=== PATIENT | male | born 1935 | race Caucasian/White ===

== ENCOUNTER 2016-11-10 17:54 | Inpatient (IN) | payer MEDICARE ==
[2016-11-10] MEDS ORDERED: FUROSEMIDE 40 MG/4 ML VIAL ONE (19:03)
[2016-11-10 19:05] LABS: ABSOLUTE NEUTROPHIL COUNT 5.5 K/mm3 (1.8-7.7); BASO # 0.1 K/mm3 (0.0-0.2); BASO % 0.8 % (0.2-1.0); EOS # 0.1 (0.0-0.5); EOS % 1.4 % (0.9-2.9); HEMATOCRIT 46.1 % (32.0-52.0); HEMOGLOBIN 14.9 gm/l (14.0-18.0); IMM NEUT% 0.3 % (0-1); LYMPH # 1.4 (1.0-4.8); LYMPH % 17.6 % (15-45); MEAN CELL VOLUME 95.4 fl (80.0-94.0); MEAN CORPUSCULAR HEMOGLOBIN 30.8 pg (27.0-31.0); MEAN CORPUSCULAR HGB CONC 32.3 g/dl (33.0-37.0); MEAN PLATELET VOLUME 10.7 fl (7.4-10.4); MONO # 0.9 (0.0-0.8); MONO % 11.7 % (4-12); NEUT % 68.2 % (43-75); PLATELET COUNT 181 K/mm3 (130-400); RED CELL DISTRIBUTION WIDTH 15.4 % (11.5-14.5)
[2016-11-10 19:16] LABS: TROPONIN I 0.02 ng/ml (0.0-0.06)
[2016-11-10 19:18] LABS: ALB/GLOB RATIO 1.1 (>1.0); ALBUMIN 3.8 gm/dL (3.5-5.7); MAGNESIUM 2.2 mg/dL (1.9-2.7)
[2016-11-10 21:26] VITALS: BMI 28.4
[2016-11-10 22:35] LABS: URINE BILIRUBIN NEGATIVE (NEGATIVE); URINE BLOOD NEGATIVE (NEGATIVE); URINE GLUCOSE (UA) NEGATIVE (NEGATIVE); URINE LEUKOCYTE ESTERASE NEGATIVE (NEGATIVE); URINE NITRITE NEGATIVE (NEGATIVE); URINE PROTEIN 1+ (NEGATIVE); URINE UROBILINOGEN NORMAL (0-1 mg/dl)
[2016-11-10 22:36] LABS: URINE APPEARANCE CLEAR; URINE COLOR YELLOW
[2016-11-10 22:42] LABS: URINE BACTERIA 0; URINE RBC 0-2 /hpf; URINE WBC 0-2 /hpf
[2016-11-10] MEDS ORDERED: BISACODYL 10 MG SUP PR PRN (23:03)
[2016-11-10] MEDS ORDERED: MAGNESIUM HYDROXIDE 30 ML UDCUP PO PRN (23:03)
[2016-11-10] MEDS ORDERED: BLISTEX LIPSTICK 1 EACH TP PRN (23:03)
[2016-11-10] MEDS ORDERED: BISACODYL 5 MG TABLET.EC PO PRN (23:03)
[2016-11-10] MEDS ORDERED: SODIUM CHLORIDE 0.9% 100 ML IV PRN (23:03)
[2016-11-11 00:09] LABS: TROPONIN I 0.02 ng/ml (0.0-0.06)
[2016-11-11 00:12] LABS: CKMB ISOENZYME 6.8 ng/ml (0.6-6.3)
[2016-11-11] MEDS ORDERED: PUMP TUBING ONE (00:42)
[2016-11-11] MEDS: SODIUM CHLORIDE 0.9% 1,000 ML IV SCH ×2 (00:46→14:01)
[2016-11-11] MEDS: MENTHOL/CETYLPYRD 1 EACH LOZENGE PO PRN (00:47)
[2016-11-11] MEDS: ALBUTEROL NEB 2.5 MG/3 ML VIAL.NEB NEB PRN ×2 (01:05→20:02)
[2016-11-11] MEDS: ACETAMINOPHEN 325 MG TABLET PO PRN (02:28)
--- NOTE | 2016-11-11 06:42 | HP ---
Tano Malcolm ADMIT DATE: 11/10/2016 CHIEF COMPLAINT: Swelling and shortness of breath. HISTORY: Tano is a 81-year-old male with a history of chronic atrial fibrillation, but no other cardiac disease known. He was brought in by his with about a 2 day history of gradually worsening shortness of breath and lower extremity swelling. His swelling has gotten fairly significant and even goes up onto his abdomen. His weighed him at home and he weighed about 213 pounds today where as his baseline is usually around 200 even. Both the patient and his are markedly poor historians, difficult to get a idea of exactly what has been going on the last few days. The indicates that his blood pressure has been running high with a bottom number around 100 and as a result she has been doubling up on an unknown medication. The medication it sounds like is not one of his normal medications, but instead is one that they found left over from a surgery a few years ago. The states that she looked up the side effects and it "looks pretty good," so they have been taking a double dose due to his high blood pressure. This has been going on for about a week it sounds like. Again, this medication is unknown. Neither the patient or the can remember any of his normal medications let alone this extra medication they have been taking a double dose of lately. He has had no chest pain. No fevers. No chills. He does have chronic tickle in his throat and feels like there is phlegm in his throat, but this has been longstanding. He has had no abdominal pain. No diarrhea. No fevers or chills. He does feel short of breath and wheezy, but he feels much better now after receiving Lasix in the emergency room. REVIEW OF SYSTEMS: As noted above, but otherwise negative. PAST MEDICAL HISTORY: 1. Chronic atrial fibrillation. He is status post Maze procedure in 2007. Last echocardiogram that we have access to is from 2014 showing an ejection fraction of 65%, severe biatrial enlargement, and diastolic dysfunction noted. 2. Hypertension. 3. History of a deep venous thrombosis in 2009. 4. A remote history of osteomyelitis to the right ankle. 5. History of a transient ischemic attack in 2012. 6. Abdominal aortic aneurysm followed with serial ultrasounds. 7. Chronic kidney disease stage III, baseline creatinine around 1.5. 8. Benign prostatic hypertrophy with a history of transurethral resection of prostate back in 2004. PAST SURGICAL HISTORY: 1. History of multiple cervical spine fusions for cervical degenerative disc disease. 2. Status post left total shoulder arthroplasty at [facility] in 2012. 3. Transurethral resection of prostate in 2004 as noted above. 4. Left inguinal hernia repair in the distant past. 5. Appendectomy in the distant past. 6. EGD June 2016 that was within normal limits by report. ALLERGIES: TO DEMEROL AND DABIGATRAN. CURRENT MEDICATIONS: Neither the patient nor his can remember his medications, but they do indicate that Dr. Coello is the only person who prescribes medications to them though and according to Dr. Coello's note his medications are as follows: 1. Amlodipine 10 mg by mouth daily. 2. Diltiazem CD 120 by mouth daily. 3. Lasix 40 mg by mouth every morning. 4. Digoxin 0.125 mg by mouth daily. 5. Dandelion root 520 mg by mouth daily. 6. Co-Q 10 100 mg by mouth daily. 7. Xarelto 15 mg by mouth daily. 8. Potassium chloride 20 mEq by mouth daily. 9. Linzess 145 mcg by mouth daily. 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 He has been almost 50 years. He had a distant history of smoking though quit decades ago. FAMILY HISTORY: Father of Alzheimer's disease. Mother of congestive heart failure. He had a brother with colon cancer and another brother with Alzheimer's disease. OBJECTIVE: VITAL SIGNS: Pulse is 59, blood pressure 136/86, respirations 20, O2 sat 95% on 2 liters. GENERAL: This is a thin elderly male. He is alert and calm sitting in bed. He is unable to answer even basic questions. His answers all questions for him. HEENT: Normocephalic, atraumatic. Tympanic membranes are clear. Oropharynx is moist with no lesions. NECK: Supple. No jugular venous distention noted. LUNGS: Completely clear with no wheezes, rales, or rhonchi. HEART: Regular rate and rhythm with distant sounds. ABDOMEN: Soft. Abdominal wall edema is noted. EXTREMITIES: He has 3 to 4+ edema in the bilateral lower extremities. There is no redness. No evidence of cellulitis. LABORATORY: CBC with a white count of 8.0, hemoglobin 14.9, hematocrit 46.1, platelets of 181. Chemistry panel sodium of 133, potassium 4.7, chloride 102, carbon dioxide 21, BUN 27, creatinine 2.1, glucose of 117, calcium 10.0, magnesium 2.2, total bilirubin 0.9, AST 69, ALT 79, alk phos of 117. CK-MB was 7.0, troponin 0.02, BNP of 390, lactate of 1.5. DIAGNOSTICS: Chest x-ray shows borderline cardiomegaly. Appears to have a hiatal hernia as well. ASSESSMENT: 1. Shortness of breath with edema with elevated BNP, this presumed new onset congestive heart failure exacerbation, however, his picture is a little unclear at this point. He has had obvious medication mismanagement lately and this may be playing into it. He has a history of a pulmonary emboli, though he is anticoagulated on Xarelto apparently. Again, it is unclear whether he is taking his medications correctly. Also concerned about possibility of renal causing his above symptoms. He has received Lasix in the emergency room and apparently feels significantly better. We will go ahead and continue with Lasix at this point. We will attempt to obtain accurate medication list tomorrow. I have asked patient's to bring in all medications in a bag tomorrow so I can review them including the extra medicine they have been using. We will check serial cardiac enzymes and repeat an echocardiogram in the morning. I want to check a D-dimer and if this is elevated will consider further workup for the possibility of pulmonary embolism. At this point we will continue just on the Xarelto. Depending on the results of the above workup we may consider a Lexiscan. 2. Acute kidney injury in the context of chronic kidney disease stage III, unclear etiology suspect medication mismanagement as an etiology. 3. Cognitive impairment. The patient seems clearly to be impaired this evening. I do not know what his baseline is. We will have therapy see him in the morning and perform a SLUMS evaluation. 4. Hypertension. By patient's 's report this has been under less good control lately. Again, we will review medications when we have them available and consider adjustments as necessary. I am particularly concerned about him being on both amlodipine and diltiazem. In review his chart this is actually a fairly longstanding regimen that he has been on. We will again review in the morning. 5. Atrial fibrillation, this is chronic and at baseline. Continue with Xarelto. 6. Deep venous thrombosis with Xarelto. Further care is dictated by clinic course. JOB: [id number] CC: Dr. He Coello
[2016-11-11 07:03] LABS: HEMATOCRIT 39.5 % (32.0-52.0); MEAN CELL VOLUME 93.2 fl (80.0-94.0); MEAN CORPUSCULAR HEMOGLOBIN 30.7 pg (27.0-31.0); MEAN CORPUSCULAR HGB CONC 32.9 g/dl (33.0-37.0); RED CELL DISTRIBUTION WIDTH 15.2 % (11.5-14.5)
[2016-11-11 07:36] LABS: TROPONIN I 0.02 ng/ml (0.0-0.06)
[2016-11-11 07:39] LABS: CKMB ISOENZYME 6.3 ng/ml (0.6-6.3)
[2016-11-11 07:41] LABS: CALCIUM 10.5 mg/dL (8.6-10.3)
--- NOTE | 2016-11-11 07:54 | RAD ---
CHEST 2 VIEWS HISTORY: Shortness of breath. Frontal and lateral chest radiographs dated 11/10/2016. COMPARISON: None. FINDINGS: FOCAL AIRSPACE OPACITY: No gross airspace consolidation. Relative elevation of the right hemidiaphragm. PLEURAL EFFUSION: None. CARDIOMEDIASTINAL SILHOUETTE: Moderately severe cardiomegaly with mild vascular congestion. Tortuous ectatic aorta with atherosclerotic calcification. PNEUMOTHORAX: None identified. OSSEOUS STRUCTURES: Thoracic kyphosis and disc degeneration. Evidence of left reverse shoulder arthroplasty. IMPRESSION: 1. Moderate cardiomegaly and mild vascular congestion without fulminant pulmonary edema or airspace consolidation. 2. Tortuous, ectatic aorta. 3. Elevation of right hemidiaphragm; consider fluoroscopic sniff test if there is concern for phrenic nerve palsy. 4. Evidence of prior left shoulder surgery.
[2016-11-11] MEDS: POTASSIUM CHLORIDE 10 MEQ TAB.SR PO SCH ×2 (08:46→16:46)
[2016-11-11] MEDS: ENOXAPARIN SODIUM 100 MG/ML SYRINGE SUB-Q SCH (08:46)
[2016-11-11] MEDS: FUROSEMIDE 40 MG/4 ML VIAL IV SCH ×2 (08:46→16:46)
[2016-11-11] MEDS: AMLODIPINE BESYLATE 5 MG TABLET PO SCH (08:47)
[2016-11-11] MEDS: DOCUSATE SODIUM 100 MG CAPSULE PO SCH ×2 (08:47→21:30)
[2016-11-11] MEDS: DILTIAZEM HCL CD 120 MG CAPSULE PO SCH (08:47)
[2016-11-11] MEDS: DIGOXIN 0.125 MG TABLET PO SCH (08:48)
[2016-11-11] MEDS ORDERED: RIVAROXABAN 10 MG TABLET PO SCH (09:00)
--- NOTE | 2016-11-11 09:02 | PDOC43 ---
- Subjective Chief Complaint: SOB, edema Breathing easier this AM. States lots of UO, though not documented in chart completely. Subjective: Reports Tolerating Diet Well, Reports Cough (Chronic cough no different than baseline.), Denies Chest Pain, Denies Abdominal Pain, Denies Nausea, Denies Vomiting, Denies Fever, Denies Chills - Objective Vital Signs Temperature 97.6 F 11/11/16 08:00 Pulse Rate 61 11/11/16 08:00 Respiratory Rate 18 11/11/16 08:00 Blood Pressure 129/77 11/11/16 08:00 O2 Saturation by Pulse Oximetry 94 11/11/16 08:00 Oxygen Delivery Method Room Air Oxygen Flow Rate 0 Intake and Output 11/10/16 11/11/16 11/12/16 06:59 06:59 06:59 Intake Total 691 Output Total 700 Balance -9 General: Alert, Cooperative, No Acute Distress HEENT: Atraumatic, PERRLA, Mucous membr. moist/pink Lungs: Other (B basilar rales.) Cardiovascular: Regular Rate and Rhythm Abdomen: Soft, Normal Bowel Sounds, Non-Distended, No Tenderness Extremities: Edema (Now with 2-3+ edema B LE's- improved overnight.) Laboratory 11/11/16 06:30 11/11/16 06:30 Laboratory Tests 11/10/16 11/10/16 11/11/16 18:05 23:35 06:30 D-Dimer 5.14 H CK-MB (CK-2) 7.0 H 6.8 H 6.3 Troponin I 0.02 0.02 0.02 Digoxin 0.7 L Current Medications: Current meds reviewed in EMR. - Problems: Assessment/Plan (1) CHF (congestive heart failure) Qualifiers: Congestive heart failure type: unspecified congestive heart failure type Congestive heart failure chronicity: unspecified congestive heart failure chronicity Qualifier Code: (I50.9) Heart failure, unspecified Status: Acute Assessment/Plan: Apparently new onset CHF exacerbation. Last echo was in 2014 with EF=60-65% and severe Bi-atrial enlargement and some diastolic dysfunction. Improved this AM with diuresis overnight. Still some uncertainty with underlying etiology ( see below). Echo today. LE US today. Consider Lexiscan. (2) CKD (chronic kidney disease) stage 3, GFR 30-59 ml/min Status: Acute Assessment/Plan: SAMIRA in context of CKD Stage 3, baseline Cr around 1.5. Suspect exacerbation d/ t medication mismanagement- pt's states they've been taking double doses of an unknown BP med she found that was left over from a surgery several years ago. Cr improved this AM with overnight diuresis and gentle IVF. Still awaiting to bring in home meds. Con't supportive care, avoid nephrotoxic agents. (3) HTN (hypertension) Qualifiers: Hypertension type: essential hypertension Qualifier Code: (I10) Essential (primary) hypertension Status: Chronic Assessment/Plan: As per has been under poor control lately. Neither nor pt knows usual meds. Have been taking double dose of unknown BP med as noted above. As per chart usual longstanding regimen is both diltiazem and amlodipine- will con' t for now while we clarify history. (4) Atrial fibrillation Qualifiers: Atrial fibrillation type: chronic Qualifier Code: (I48.2) Chronic atrial fibrillation Status: Chronic Assessment/Plan: Chronic and long standing. Appears stable at baseline. MAZE procedure in 2007. Echo today as above. Holding usual Xarelto this AM and transitioning to full dose lovenox d/t possible DVT/PE. Con't usual dilt/dig. (5) H/O deep venous thrombosis Status: Chronic Assessment/Plan: DVT in 2009. Elevated d-dimer now. Hold Xarelto and tx with full renal dose lovenox. Check LE US for DVT. Can't do Chest CTA d/t renal. Concern that pt may not have been taking Xarelto correctly/consistently and may have PE as etiology for CHF sx. Consider V/Q scan if con't concern after above workup. (6) Cognitive impairment Status: Chronic Assessment/Plan: Both pt and appear to be cogitively impaired, NOS. PT/OT to see today and will check SLUMS and home safety eval. Suspect medical mismanagement as etiology for much of the above. (7) Medical non-compliance Status: Acute Assessment/Plan: As above. VTE Prophylaxis: Lovenox. Disposition: Unknown.
--- NOTE | 2016-11-11 12:55 | US ---
DUPLEX SCAN VEIN EXT SARAY COMPARISON: 10/22/2011 HISTORY: 81-year-old male on blood thinners and with a history of deep venous thrombosis presents with lower extremity swelling and shortness of breath. Technique: The veins of both lower extremities were interrogated with real-time grayscale ultrasound, color Doppler, and spectral Doppler. Vessel compressibility and flow augmentation were assessed. FINDINGS: Right lower extremity Deep venous thrombosis: None Common femoral vein: Normal Saphenous vein confluence: Normal Proximal femoral vein: Normal Mid and distal femoral vein: Normal Popliteal vein: Normal. Peroneal veins: Normal. Posterior tibial veins: Normal Soft tissues: Edema, thigh and calf. FINDINGS: Left lower extremity Deep venous thrombosis: None Common femoral vein: Normal Saphenous vein confluence: Normal Proximal femoral vein: Normal Mid and distal femoral vein: Normal Popliteal vein: Normal Peroneal veins: Flow visible. Unable to compress. Posterior tibial veins: Normal Soft tissues: Edema in the thigh and calf. IMPRESSION: No deep venous thrombosis of either lower extremity. The results were discussed with Isael Washington M.D. 11/11/2016 at 12:52
[2016-11-12] MEDS: SODIUM CHLORIDE 0.9% 1,000 ML IV SCH (03:33)
[2016-11-12] MEDS: ALBUTEROL NEB 2.5 MG/3 ML VIAL.NEB NEB PRN ×3 (04:43→14:46)
[2016-11-12 06:59] LABS: HEMATOCRIT 40.7 % (32.0-52.0); HEMOGLOBIN 13.5 gm/l (14.0-18.0); MEAN CORPUSCULAR HEMOGLOBIN 31.2 pg (27.0-31.0); MEAN CORPUSCULAR HGB CONC 33.2 g/dl (33.0-37.0); RED CELL DISTRIBUTION WIDTH 15.5 % (11.5-14.5)
[2016-11-12 07:21] LABS: CALCIUM 8.6 mg/dL (8.6-10.3)
[2016-11-12] MEDS ORDERED: SODIUM CHLORIDE 0.9% FLUSH 10 ML ONE (07:28)
[2016-11-12] MEDS ORDERED: IV START KIT ONE (07:28)
[2016-11-12] MEDS: ENOXAPARIN SODIUM 100 MG/ML SYRINGE SUB-Q SCH (08:03)
[2016-11-12] MEDS: MENTHOL/CETYLPYRD 1 EACH LOZENGE PO PRN (08:28)
[2016-11-12] MEDS: DIGOXIN 0.125 MG TABLET PO SCH (08:40)
[2016-11-12] MEDS: DILTIAZEM HCL CD 120 MG CAPSULE PO SCH (08:40)
[2016-11-12] MEDS: POTASSIUM CHLORIDE 10 MEQ TAB.SR PO SCH (08:40)
[2016-11-12] MEDS: FUROSEMIDE 40 MG/4 ML VIAL IV SCH (08:40)
[2016-11-12] MEDS: AMLODIPINE BESYLATE 5 MG TABLET PO SCH (08:40)
[2016-11-12] MEDS: ACETAMINOPHEN 325 MG TABLET PO PRN ×2 (08:40→19:03)
[2016-11-12] MEDS: DOCUSATE SODIUM 100 MG CAPSULE PO SCH ×2 (08:41→20:49)
--- NOTE | 2016-11-12 10:55 | PDOC43 ---
- Subjective Chief Complaint: SOB, edema Feeling better this AM. No pain c/o's. SOB better with nebs. Subjective: Reports Tolerating Diet Well, Denies Chest Pain, Denies Abdominal Pain, Denies Nausea, Denies Vomiting, Denies Fever, Denies Chills - Objective Vital Signs Temperature 98.0 F 11/12/16 07:08 Pulse Rate 74 11/12/16 08:50 Respiratory Rate 20 11/12/16 08:50 Blood Pressure 137/83 11/12/16 07:08 O2 Saturation by Pulse Oximetry 94 11/12/16 08:50 Oxygen Delivery Method Nasal Cannula Oxygen Flow Rate 3 Intake and Output 11/11/16 11/12/16 11/13/16 06:59 06:59 06:59 Intake Total 3521 1066 Output Total 1850 2400 Balance 1671 -1334 General: Alert, Cooperative, No Acute Distress HEENT: Atraumatic, PERRLA, Mucous membr. moist/pink Lungs: Clear to Auscultation Bilaterally Cardiovascular: Regular Rate and Rhythm Abdomen: Soft, Normal Bowel Sounds, No Tenderness, No Distention Extremities: Edema (Decreased since admit. 2+ now.) Laboratory 11/12/16 06:30 11/12/16 06:30 11/12/16 06:30 RBC 4.33 L MCH 31.2 H RDW 15.5 H Estimated GFR 39 L Current Medications: Current meds reviewed in EMR. - Problems: Assessment/Plan (1) Pulmonary emboli Status: Acute Assessment/Plan: Echo 11/11/16 with severe R heart strain c/w acute PE. Discussed with pt and - they stopped Xarelto several weeks ago for unclear reasons- neither pt or can answer why. Pt with h/o DVT in 2009 and markedly elevated d-dimer now. Can't do CTA d/t renal. Acute PE mimicking acute CHF is most likely dx given clinical picture. Will resume tx dose Xarelto 15 mg bid x 21 days then 20 mg daily thereafter. Pt and appear to have significant cognitive issues that make it unlikely they will be able to manage complicated medical issues on their own- family conference with dtr and SW later today. (2) CHF (congestive heart failure) Qualifiers: Congestive heart failure type: unspecified congestive heart failure type Congestive heart failure chronicity: unspecified congestive heart failure chronicity Qualifier Code: (I50.9) Heart failure, unspecified Status: Acute Assessment/Plan: Echo 11/11/16 similar to previous w/ nl EF except now with severe R heart strain c /w PE. Does not appear to have true CHF exacerbation. See above. (3) CKD (chronic kidney disease) stage 3, GFR 30-59 ml/min Status: Acute Assessment/Plan: SAMIRA in context of CKD Stage 3, baseline Cr around 1.5. Suspect exacerbation d/ t medication mismanagement- pt's states they've been taking double doses of an unknown BP med she found that was left over from a surgery several years ago- brought in a couple bottles today but not the medicine she was giving. remains very confused about what meds she was giving pt. Cr improved this AM to near baseline. Con't supportive care, avoid nephrotoxic agents. (4) HTN (hypertension) Qualifiers: Hypertension type: essential hypertension Qualifier Code: (I10) Essential (primary) hypertension Status: Chronic Assessment/Plan: As per has been under poor control lately. Neither nor pt knows usual meds. Have been taking double dose of unknown BP med as noted above. As per chart usual longstanding regimen is both diltiazem and amlodipine- stable on this regimen since admit and will plan to con't. (5) Atrial fibrillation Qualifiers: Atrial fibrillation type: chronic Qualifier Code: (I48.2) Chronic atrial fibrillation Status: Chronic Assessment/Plan: Chronic and long standing. Appears stable at baseline on dig/dilt. MAZE procedure in 2007. Echo 11/12/16 as above. Resume Xarelto as above. (6) H/O deep venous thrombosis Status: Chronic Assessment/Plan: DVT in 2009. PE now as above. (7) Cognitive impairment Status: Chronic Assessment/Plan: Both pt and appear to be cogitively impaired, NOS. SLUMS on 11/11/16= 11/07 c/w dementia. Suspect medical mismanagement and inability of pt/ to care for selves as etiology for much of the above. (8) Medical non-compliance Status: Acute Assessment/Plan: As above. VTE Prophylaxis: Xarelto. Disposition: Unknown.
[2016-11-12] MEDS: RIVAROXABAN 10 MG TABLET PO SCH ×2 (11:27→20:49)
[2016-11-12] MEDS: FUROSEMIDE 40 MG TABLET PO SCH (16:48)
[2016-11-12] MEDS: POTASSIUM CHLORIDE 20 MEQ TAB.PRT.SR PO SCH (17:10)
[2016-11-13] MEDS: ALBUTEROL NEB 2.5 MG/3 ML VIAL.NEB NEB PRN (02:13)
[2016-11-13] MEDS: ACETAMINOPHEN 325 MG TABLET PO PRN ×3 (05:19→17:44)
[2016-11-13 07:30] LABS: CALCIUM 8.6 mg/dL (8.6-10.3)
[2016-11-13] MEDS: AMLODIPINE BESYLATE 5 MG TABLET PO SCH (08:58)
[2016-11-13] MEDS: RIVAROXABAN 10 MG TABLET PO SCH ×2 (08:58→20:51)
[2016-11-13] MEDS: DILTIAZEM HCL CD 120 MG CAPSULE PO SCH (08:59)
[2016-11-13] MEDS: DIGOXIN 0.125 MG TABLET PO SCH (08:59)
[2016-11-13] MEDS: POTASSIUM CHLORIDE 20 MEQ TAB.PRT.SR PO SCH ×2 (08:59→17:45)
[2016-11-13] MEDS: FUROSEMIDE 40 MG TABLET PO SCH (08:59)
[2016-11-13] MEDS: DOCUSATE SODIUM 100 MG CAPSULE PO SCH ×2 (08:59→20:51)
--- NOTE | 2016-11-13 11:31 | PDOC43 ---
- Subjective Chief Complaint: SOB, edema Feeling much better today. Still c/o dry cough (long standing as per clinic chart). Subjective: Reports Tolerating Diet Well, Reports Adequate Oral Intake, Denies Shortness of Breath, Denies Chest Pain, Denies Abdominal Pain, Denies Nausea, Denies Vomiting, Denies Fever, Denies Chills - Objective Vital Signs Temperature 98.0 F 11/13/16 08:00 Pulse Rate 78 11/13/16 08:00 Respiratory Rate 20 11/13/16 08:00 Blood Pressure 134/92 11/13/16 08:00 O2 Saturation by Pulse Oximetry 88 11/13/16 08:00 Oxygen Delivery Method Room Air Oxygen Flow Rate 0 Intake and Output 11/12/16 11/13/16 11/14/16 06:59 06:59 06:59 Intake Total 3521 2616 Output Total 1850 5050 Balance 1671 -2434 General: Alert, Cooperative, No Acute Distress HEENT: Atraumatic Lungs: Clear to Auscultation Bilaterally Cardiovascular: Regular Rate and Rhythm Abdomen: Soft, Normal Bowel Sounds, Non-Distended, No Tenderness Extremities: Edema (Markedly decreased today- 1+ B LE's.), Normal Pulses Laboratory 11/13/16 06:16 11/13/16 06:16 Estimated GFR 48 L Current Medications: Current meds reviewed in EMR. - Problems: Assessment/Plan (1) Pulmonary emboli Status: Acute Assessment/Plan: Echo 11/11/16 with severe R heart strain c/w acute PE. Discussed with pt and - they stopped Xarelto several weeks ago for unclear reasons- neither pt or can answer why. Pt with h/o DVT in 2009 and markedly elevated d-dimer now. Can't do CTA d/t renal. Acute PE mimicking acute CHF is most likely dx given clinical picture. Will resume tx dose Xarelto 15 mg bid x 21 days then 20 mg daily thereafter. Pt and appear to have significant cognitive issues that make it unlikely they will be able to manage complicated medical issues on their own. SW involved. Plan to d/c to SNF in AM. (2) CHF (congestive heart failure) Qualifiers: Congestive heart failure type: unspecified congestive heart failure type Congestive heart failure chronicity: unspecified congestive heart failure chronicity Qualifier Code: (I50.9) Heart failure, unspecified Status: Acute Assessment/Plan: Echo 11/11/16 similar to previous w/ nl EF except now with severe R heart strain c /w PE. Does not appear to have true CHF exacerbation. See above. Good auto- diuresis overnight. On usual po lasix, dilt/dig, KCl. (3) CKD (chronic kidney disease) stage 3, GFR 30-59 ml/min Status: Acute Assessment/Plan: SAMIRA in context of CKD Stage 3, baseline Cr around 1.5. Suspect exacerbation d/ t medication mismanagement- pt's states they've been taking double doses of an unknown BP med she found that was left over from a surgery several years ago- brought in a couple bottles today but not the medicine she was giving. remains very confused about what meds she was giving pt. Cr this AM near baseline. Con't supportive care, avoid nephrotoxic agents. (4) HTN (hypertension) Qualifiers: Hypertension type: essential hypertension Qualifier Code: (I10) Essential (primary) hypertension Status: Chronic Assessment/Plan: As per has been under poor control lately. Neither nor pt knows usual meds. Have been taking double dose of unknown BP med as noted above. As per chart usual longstanding regimen is both diltiazem and amlodipine- stable on this regimen since admit and will plan to con't. (5) Atrial fibrillation Qualifiers: Atrial fibrillation type: chronic Qualifier Code: (I48.2) Chronic atrial fibrillation Status: Chronic Assessment/Plan: Chronic and long standing. Appears stable at baseline on dig/dilt. MAZE procedure in 2007. Echo 11/12/16 as above. Xarelto as above. (6) H/O deep venous thrombosis Status: Chronic Assessment/Plan: DVT in 2009. PE now as above. (7) Cognitive impairment Status: Chronic Assessment/Plan: Both pt and appear to be cogitively impaired, NOS. SLUMS on 11/11/16= 11/07 c/w dementia. Suspect medical mismanagement and inability of pt/ to care for selves as etiology for much of the above. SW involved. Will need increased care as outpt for med mgmnt. (8) Medical non-compliance Status: Acute Assessment/Plan: As above. VTE Prophylaxis: Xarelto. Disposition: Plan d/c to [facility] 11/14/16.
[2016-11-13] MEDS: MENTHOL/CETYLPYRD 1 EACH LOZENGE PO PRN (20:59)
[2016-11-14] MEDS: MENTHOL/CETYLPYRD 1 EACH LOZENGE PO PRN (05:15)
[2016-11-14] MEDS: ACETAMINOPHEN 325 MG TABLET PO PRN (06:33)
[2016-11-14] MEDS: ALBUTEROL NEB 2.5 MG/3 ML VIAL.NEB NEB PRN (08:29)
[2016-11-14] MEDS: AMLODIPINE BESYLATE 5 MG TABLET PO SCH (09:19)
[2016-11-14] MEDS: POTASSIUM CHLORIDE 20 MEQ TAB.PRT.SR PO SCH (09:20)
[2016-11-14] MEDS: FUROSEMIDE 40 MG TABLET PO SCH (09:20)
[2016-11-14] MEDS: DILTIAZEM HCL CD 120 MG CAPSULE PO SCH (09:20)
[2016-11-14] MEDS: DOCUSATE SODIUM 100 MG CAPSULE PO SCH (09:20)
[2016-11-14] MEDS: DIGOXIN 0.125 MG TABLET PO SCH (09:20)
[2016-11-14] MEDS: RIVAROXABAN 10 MG TABLET PO SCH (09:21)
--- NOTE | 2016-11-14 10:19 | PDOC43 ---
- Subjective Chief Complaint: SOB, edema Patient reports feeling ok. Gets a little out of breath with activity. No pain complaints. - Objective Vital Signs Temperature 98.0 F 11/14/16 08:03 Pulse Rate 90 11/14/16 09:26 Respiratory Rate 18 11/14/16 08:29 Blood Pressure 140/96 11/14/16 08:03 O2 Saturation by Pulse Oximetry 93 11/14/16 09:26 Oxygen Delivery Method Room Air Oxygen Flow Rate 0 Vital Signs Last 12 Hours Temp Pulse Resp BP Pulse Ox 11/14/16 09:26 90 93 11/14/16 08:29 81 18 92 11/14/16 08:03 98.0 F 90 20 140/96 96 11/14/16 04:56 98.3 F 90 24 148/93 94 11/14/16 01:38 22 11/14/16 00:42 98.5 F 85 16 139/88 93 Intake and Output 11/12/16 11/13/16 11/14/16 23:59 23:59 23:59 Intake Total 3891 1275 800 Output Total 4900 1825 775 Balance -1009 -550 25 General: Cooperative, No Acute Distress HEENT: Atraumatic Lungs: Clear to Auscultation Bilaterally, Normal Air Movement Cardiovascular: Regular Rate and Rhythm Abdomen: Soft, Normal Bowel Sounds, Non-Distended, No Tenderness Extremities: Edema (1+ edema at ankles bilat.), No Tenderness Skin: Normal Color Neurological: Normal Speech, Normal Reflexes Psych/Mental Status: Normal Affect, Other (Oriented to Month and year, but perseverates on date (but seems to keep saying 7).) Laboratory 11/12/16 06:30 11/13/16 06:16 Current Medications: Current meds reviewed in EMR. Active Medications Acetaminophen (Tylenol) 650 mg PO Q6H PRN PRN Reason: Pain or Temperature > 100.5 F Last Admin: 11/14/16 06:33 Dose: 650 mg Albuterol Sulfate (Ventolin Inhalation Solution (Dose)) 2.5 mg NEB Q2H PRN PRN Reason: Wheezing Last Admin: 11/14/16 08:29 Dose: 2.5 mg Amlodipine Besylate (Norvasc) 10 mg PO DAILY [facility] Last Admin: 11/14/16 09:19 Dose: 10 mg Benzocaine/Menthol (Cepacol) 1 each PO PRN PRN PRN Reason: Sore Throat Last Admin: 11/14/16 05:15 Dose: 1 each Bisacodyl (Dulcolax) 10 mg MN DAILY PRN PRN Reason: Constipation Bisacodyl (Dulcolax) 5 mg PO DAILY PRN PRN Reason: Constipation Digoxin (Lanoxin) 0.125 mg PO DAILY [facility] Last Admin: 11/14/16 09:20 Dose: 0.125 mg Diltiazem HCl (Cardizem Cd) 120 mg PO DAILY [facility] Last Admin: 11/14/16 09:20 Dose: 120 mg Docusate Sodium (Colace) 100 mg PO BID [facility] Last Admin: 11/14/16 09:20 Dose: 100 mg Furosemide (Lasix) 40 mg PO QAM [facility] Last Admin: 11/14/16 09:20 Dose: 40 mg Sodium Chloride (Sodium Chloride 0.9%) 100 mls @ 25 mls/hr IV PRN PRN PRN Reason: Flush Magnesium Hydroxide (Milk Of Magnesia) 30 ml PO DAILY PRN PRN Reason: Constipation Petrolatum/Paraffin/Mineral Oil (Blistex) 1 each TP PRN PRN PRN Reason: Dry and/or chapped lips Potassium Chloride (K-Dur) 20 meq PO BIDWM [facility] Last Admin: 11/14/16 09:20 Dose: 20 meq Rivaroxaban (Xarelto) 15 mg PO BID [facility] Last Admin: 11/14/16 09:21 Dose: 15 mg Sodium Chloride (Normal Saline 10ml Flush) 10 - 50 ml IV PRN PRN PRN Reason: IV Flush Last Admin: 11/11/16 00:47 Dose: 10 ml Sodium Chloride (Normal Saline 10ml Flush) 10 ml IV Q8HR [facility] Last Admin: 11/14/16 09:21 Dose: 10 ml - Problems: Assessment/Plan (1) Pulmonary emboli Qualifiers: Chronicity: unspecified Acute cor pulmonale presence: with acute cor pulmonale Status: Suspected Assessment/Plan: Echo 11/11/16 with severe R heart strain c/w acute PE. Discussed with pt and - they stopped Xarelto several weeks ago for unclear reasons- neither pt or can answer why. Pt with h/o DVT in 2009 and markedly elevated d-dimer now. Can't do CTA d/t renal. Suspect Acute PE mimicking acute CHF is most likely dx given clinical picture. Resumed tx dose Xarelto 15 mg bid x 21 days then 20 mg daily thereafter. Pt and appear to have significant cognitive issues that make it unlikely they will be able to manage complicated medical issues on their own. SW involved. Plan to d/c to SNF in AM. (2) CHF (congestive heart failure) Qualifiers: Congestive heart failure type: unspecified congestive heart failure type Congestive heart failure chronicity: unspecified congestive heart failure chronicity Qualifier Code: (I50.9) Heart failure, unspecified Status: Acute Assessment/Plan: Echo 11/11/16 similar to previous w/ nl EF except now with severe R heart strain c /w PE. Does not appear to have true CHF exacerbation. On usual po lasix, dilt/dig, KCl. (3) CKD (chronic kidney disease) stage 3, GFR 30-59 ml/min Status: Acute Assessment/Plan: SAMIRA in context of CKD Stage 3, baseline Cr around 1.5. Suspect exacerbation d/ t medication mismanagement- pt's states they've been taking double doses of an unknown BP med she found that was left over from a surgery several years ago- brought in a couple bottles today but not the medicine she was giving. remains very confused about what meds she was giving pt. Cr this AM near baseline. Con't supportive care, avoid nephrotoxic agents. (4) Atrial fibrillation Qualifiers: Atrial fibrillation type: chronic Qualifier Code: (I48.2) Chronic atrial fibrillation Status: Chronic Assessment/Plan: Chronic and long standing. Appears stable at baseline on dig/dilt. MAZE procedure in 2007. Echo 11/12/16 as above. Xarelto as above. (5) Cognitive impairment Status: Chronic Assessment/Plan: Both pt and appear to be cogitively impaired, NOS. SLUMS on 11/11/16= 11/07 c/w dementia. Suspect medical mismanagement and inability of pt/ to care for selves as etiology for much of the above. SW involved. Anticipate going to SNF (6) HTN (hypertension) Qualifiers: Hypertension type: essential hypertension Qualifier Code: (I10) Essential (primary) hypertension Status: Chronic Assessment/Plan: As per has been under poor control lately. Neither nor pt knows usual meds. Have been taking double dose of unknown BP med as noted above. As per chart usual longstanding regimen is both diltiazem and amlodipine- stable on this regimen since admit so will plan to con't. VTE Prophylaxis: Xarelto, resumed. Disposition: Plan d/c to [facility] 11/14/16.
--- NOTE | 2016-11-14 11:36 | DS ---
Tano Malcolm [id number] DATE OF ADMISSION: 11/10/2016 DATE OF DISCHARGE: 11/14/2016 DISCHARGE DIAGNOSES: 1. Acute exacerbation of congestive heart failure suspected due to acute pulmonary embolus. 2. History of recurrent pulmonary embolus. Patient is off Xarelto for uncertain reasons. 3. Chronic atrial fibrillation on Digoxin and diltiazem. 4. Remote history of deep venous thrombosis 2009. 5. Hypertension. 6. Remote history of osteomyelitis of the right ankle. 7. History of transient ischemic attack. 8. Suspected dementia with SLUMS score of 13/30. 9. Chronic kidney disease stage 3 with a creatinine of 1.4. 10. History of chronic abdominal aortic aneurysm. 11. Benign prostatic hypertrophy with history of transurethral resection of prostate. REASON FOR ADMISSION: The patient is a 81-year-old male with history of chronic atrial fibrillation who was brought by his with a two day history of gradually worsening shortness of breath and lower extremity swelling. He has gained approximately 13 pounds, but otherwise he and his are unable to give much history. Indicated that they have been having some high blood pressures and that they had been taking medicines of uncertain history. He in the emergency room was noted to have a white blood cell count of 8.0, hemoglobin of 14.9, D-dimer 5.14, lactate 1.5, sodium 133, potassium 4.7, BUN 27, creatinine 2.1, glucose 117, AST 69, ALT 79, alk phos 117. Troponin 0.02. CK-MB of 7.0. BNP of 390. Globulin 3.6. Urinalysis 0-2 red cells, 0-2 white cells, 2-4 epithelial cells, 12-15 jessica casts, 1+ protein. Digoxin 0.7. His imaging studies showed a chest x-ray with moderate cardiomegaly, mild vascular congestion without pulmonary edema or airspace consolidation, tortuous ectatic aorta, elevation of the right hemidiaphragm and prior left shoulder surgery. He had a venous study of his legs showing no deep venous thrombosis on either lower extremity. EKG had shown atrial fibrillation, incomplete right bundle branch block, nonspecific ST changes concerning for right sided strain. He also had echocardiogram showing normal left ventricular size and function, severe left atrial enlargement, mild mitral valve regurgitation, moderate right ventricular dilatation, severe right atrial enlargement, right ventricular systolic pressure estimated at 55 to 60 mmHg, inferior vena cava not seen, no pericardial effusion. Patient was treated for suspected pulmonary embolus as his renal status would not allow a CT angiogram of the chest. He was started on his anticoagulation with a treatment dose of Xarelto 15 mg by mouth twice daily x21 days and his consultation for the SLUMS with a 11/07 on testing 11/11/2016. Patient showed improvement in respiratory status and it was felt that discharge to a alf facility would be best at this time. He had follow up labs which showed a white blood cell count 8.4, hemoglobin 13.5. Sodium 136, potassium 3.3, BUN 16, creatinine 1.4, glucose 92, calcium 8.6. Troponin remained 0.02 and he was discharged on 11/14/2016 to [facility]. DISCHARGE MEDICATIONS: Are estimated based on his report of previous medicines and do include a duplication of a calcium channel antwan therapy. He will be on: 1. Amlodipine 10 mg daily. 2. Dandelion root 520 mg by mouth daily. 3. Digoxin 125 mcg by mouth daily. 4. Diltiazem CD 120 mg by mouth daily. 5. Lasix 40 mg by mouth every morning. 6. Linzess 145 mcg by mouth daily. 7. Potassium chloride 20 mEq by mouth twice daily. 8. Xarelto 15 mg by mouth twice daily until the and then going to 20 mg by mouth daily. 9. Co-Q 10 100 mg by mouth daily. FOLLOW UP: With Dr. Coello. DIET: Will be cardiac diet as tolerated. ACTIVITY: Will be as tolerated. CODE STATUS: Unidentified. Vitals signs at the time of discharge temperature 98.0, pulse 90, respirations 18, 93% saturation on room air. Patient had, had urinary retention and Fox was placed and he will be discharged with a Fox in place. JOB: [id number] CC: Dr. Coello
[2016-11-14 12:12] VITALS: BP 152/90
== END 2016-11-14 13:00 | DRG 291 ==
LOC: ED 17:54 → MS 20:12 → OBSVTOIN 11-11 15:25
PROVIDERS: ADMIT Family Medicine; ATTEND Family Medicine
DX: I13.0 Hypertensive heart and chronic kidney disease with heart failure and stage 1 through stage 4 chronic kidney disease, or unspecified chronic kidney disease (principal); I26.99 Other pulmonary embolism without acute cor pulmonale; I50.22 Chronic systolic (congestive) heart failure; N17.9 Acute kidney failure, unspecified; N18.3 Chronic kidney disease, stage 3 (moderate); Z86.718 Personal history of other venous thrombosis and embolism; N40.0 Benign prostatic hyperplasia without lower urinary tract symptoms; I48.2 Chronic atrial fibrillation; Z87.891 Personal history of nicotine dependence; F03.90 Unspecified dementia, unspecified severity, without behavioral disturbance, psychotic disturbance, mood disturbance, and anxiety

== ENCOUNTER 2016-11-15 11:54 | Emergency (ER) | payer MEDICARE ==
[2016-11-15] MEDS ORDERED: ALBUTEROL/IPRATROPIUM 2.5/0.5 MG 3 ML/EACH DOSE ONE (12:46)
[2016-11-15] MEDS ORDERED: FUROSEMIDE 40 MG/4 ML VIAL ONE (12:59)
[2016-11-15 13:06] LABS: URINE BILIRUBIN NEGATIVE (NEGATIVE); URINE BLOOD 4+ (NEGATIVE); URINE GLUCOSE (UA) NEGATIVE (NEGATIVE); URINE LEUKOCYTE ESTERASE TRACE (NEGATIVE); URINE NITRITE NEGATIVE (NEGATIVE); URINE PROTEIN 2+ (NEGATIVE); URINE UROBILINOGEN 1 mg/dL (0-1 mg/dl)
[2016-11-15 13:09] LABS: URINE APPEARANCE TURBID; URINE COLOR RED
[2016-11-15 13:14] LABS: INR 1.66
[2016-11-15 13:22] LABS: ALB/GLOB RATIO 1.1 (>1.0); ALBUMIN 3.6 gm/dL (3.5-5.7); CALCIUM 9.6 mg/dL (8.6-10.3); URINE BACTERIA NONE SEEN; URINE EPITHELIAL CELLS 0-2 /hpf; URINE RBC >100 /hpf
--- NOTE | 2016-11-15 13:58 | RAD ---
EXAMINATION:CHEST - 2 VIEWS CLINICAL INDICATION: Shortness of breath COMPARISON: 11/10/2016. FINDINGS: Cardiomegaly is again noted. Atherosclerosis with mild aortic ectasia similar. There is increasing pulmonary vascular congestion. There are low lung volumes with basilar atelectasis. Small left pleural effusion is suggested. The lung apices are relatively clear. Left shoulder arthroplasty is noted. IMPRESSION: Cardiomegaly with increasing pulmonary vascular congestion. There is a developing small left pleural effusion with bibasilar atelectasis.
[2016-11-15] MEDS ORDERED: HYDROCODONE/ACETAMINOPHEN 5/325MG TABLET ONE (20:09)
== END 2016-11-15 20:45 | disposition home or self-care (01) ==
LOC: ED 11:54
DX: I50.9 Heart failure, unspecified (principal); R31.9 Hematuria, unspecified; Z46.6 Encounter for fitting and adjustment of urinary device; I10 Essential (primary) hypertension; I48.91 Unspecified atrial fibrillation; Z86.73 Personal history of transient ischemic attack (TIA), and cerebral infarction without residual deficits; Z79.01 Long term (current) use of anticoagulants; Z79.899 Other long term (current) drug therapy; Z88.5 Allergy status to narcotic agent; Z88.8 Allergy status to other drugs, medicaments and biological substances
CPT/HCPCS: 83880; 82550; 87086; 80053; 85610; 84484; 81001; 71020; 94640; 99284 ×2; 96374; J1940; A9270

== ENCOUNTER 2016-12-09 19:07 | Inpatient (IN) | payer MEDICARE ==
[2016-12-09 19:54] LABS: ABSOLUTE NEUTROPHIL COUNT 17.1 K/mm3 (1.8-7.7); BASO % 0.2 % (0.2-1.0); EOS % 0.1 % (0.9-2.9); HEMATOCRIT 38.6 % (32.0-52.0); HEMOGLOBIN 12.7 gm/l (14.0-18.0); IMM NEUT # 0.1 K/mm3 (0-0.2); IMM NEUT% 0.8 % (0-1); LYMPH # 0.2 (1.0-4.8); LYMPH % 1.2 % (15-45); MEAN CELL VOLUME 93.2 fl (80.0-94.0); MEAN CORPUSCULAR HEMOGLOBIN 30.7 pg (27.0-31.0); MEAN CORPUSCULAR HGB CONC 32.9 g/dl (33.0-37.0); MEAN PLATELET VOLUME 10.3 fl (7.4-10.4); MONO # 0.3 (0.0-0.8); MONO % 1.8 % (4-12); NEUT % 95.9 % (43-75); PLATELET COUNT 254 K/mm3 (130-400); RED CELL DISTRIBUTION WIDTH 14.4 % (11.5-14.5)
[2016-12-09 19:59] LABS: SPECIFIC GRAVITY 1.015 (1.001-1.030); URINE BILIRUBIN NEGATIVE (NEGATIVE); URINE BLOOD 4+ (NEGATIVE); URINE GLUCOSE (UA) NEGATIVE (NEGATIVE); URINE LEUKOCYTE ESTERASE 2+ (NEGATIVE); URINE NITRITE NEGATIVE (NEGATIVE); URINE PROTEIN 3+ (NEGATIVE); URINE UROBILINOGEN 1 mg/dL (0-1 mg/dl)
[2016-12-09 20:03] LABS: URINE APPEARANCE SL CLOUDY; URINE COLOR DARK YELLOW
[2016-12-09 20:05] LABS: ALBUMIN 3.5 gm/dL (3.5-5.7); CALCIUM 9.4 mg/dL (8.6-10.3); MAGNESIUM 1.8 mg/dL (1.9-2.7)
[2016-12-09 20:07] LABS: INR 1.49
[2016-12-09 20:10] LABS: URINE RBC 30-40 /hpf; URINE WBC PACKED /hpf
[2016-12-09 20:11] LABS: URINE AMORPHOUS SEDIMENT FEW; URINE BACTERIA 3+
[2016-12-09] MEDS ORDERED: LACTATED RINGERS 1,000 ML ONE (20:18)
[2016-12-09 20:20] LABS: TROPONIN I 0.05 ng/ml (0.0-0.06)
[2016-12-09 20:24] LABS: CKMB ISOENZYME 1.6 ng/ml (0.6-6.3)
--- NOTE | 2016-12-09 20:28 | RAD ---
EXAMINATION:CHEST - 2 VIEWS CLINICAL INDICATION: Fever COMPARISON: 11/15/2016. FINDINGS: Cardiomegaly with mild aortic ectasia similar to the prior study. There is no adenopathy identified. There is no pleural effusion. Elevation right hemidiaphragm is slightly increased in the interim. Left basilar opacity/infiltrate is cleared in the interim. The upper lung zones are unremarkable. Left shoulder arthroplasty is noted. Senescent changes of the osseous structures are stable. IMPRESSION: Clearing left basilar infiltrate/effusion. There is slight elevation right hemidiaphragm. Cardiomegaly and aortic ectasia is otherwise similar to the prior study.
[2016-12-09] MEDS ORDERED: CEFTRIAXONE 1 GRAM DUPLEX 50 ML IV ONE (20:58)
[2016-12-09] MEDS ORDERED: ACETAMINOPHEN 325 MG TABLET ONE (20:58)
[2016-12-09 21:15] LABS: BAND 6 % (0-10); BASOPHIL 0 % (0-1); EOSINOPHIL 0 % (1-3); LYMPHOCYTE 1 % (15-45); MONOCYTE 1 % (4-12); NEUTROPHILS 92 % (43-75); PLATELET ESTIMATE NORMAL (NORMAL); TOTAL CELLS COUNTED 100
[2016-12-09] MEDS ORDERED: NITROGLYCERIN 0.4 MG/TAB.SUBL BOT SL PRN (21:58)
[2016-12-09] MEDS ORDERED: SODIUM CHLORIDE 0.9% 100 ML IV PRN (21:59)
[2016-12-09] MEDS ORDERED: MENTHOL/CETYLPYRD 1 EACH LOZENGE PO PRN (21:59)
[2016-12-09] MEDS ORDERED: PANTOPRAZOLE 40 MG TABLET DR PO SCH (21:59)
[2016-12-09] MEDS ORDERED: BLISTEX LIPSTICK 1 EACH TP PRN (21:59)
[2016-12-09] MEDS ORDERED: MAGNESIUM HYDROXIDE 30 ML UDCUP PO PRN (21:59)
[2016-12-09] MEDS ORDERED: ACETAMINOPHEN 325 MG TABLET PO PRN (22:01)
[2016-12-09] MEDS ORDERED: MAG HYDROX/AL HYDROX/SIMETH 30 ML UDCUP ONE (23:41)
[2016-12-09] MEDS ORDERED: SODIUM CHLORIDE 0.9% 500 ML ONE (23:42)
[2016-12-09] MEDS ORDERED: MAG HYDROX/AL HYDROX/SIMETH 30 ML UDCUP PO ONE (23:44)
[2016-12-09] MEDS: SODIUM CHLORIDE 0.9% 500 ML BAG IV PRN (23:46)
[2016-12-09] MEDS ORDERED: PUMP TUBING ONE (23:50)
[2016-12-10] MEDS ORDERED: MORPHINE SULFATE 2 MG/ML SYRINGE ONE (00:09)
[2016-12-10] MEDS: MORPHINE SULFATE 2 MG/ML SYRINGE IV PRN ×2 (00:17→08:06)
[2016-12-10] MEDS: TAMSULOSIN HCL 0.4 MG CAPSULE.DR PO SCH ×2 (01:07→20:40)
[2016-12-10 05:52] LABS: BASO # 0.1 K/mm3 (0.0-0.2); BASO % 0.2 % (0.2-1.0); HEMATOCRIT 36.4 % (32.0-52.0); HEMOGLOBIN 11.9 gm/l (14.0-18.0); IMM NEUT # 1.6 K/mm3 (0-0.2); IMM NEUT% 4.2 % (0-1); LYMPH # 0.9 (1.0-4.8); LYMPH % 2.4 % (15-45); MEAN CELL VOLUME 94.8 fl (80.0-94.0); MEAN CORPUSCULAR HGB CONC 32.7 g/dl (33.0-37.0); MEAN PLATELET VOLUME 10.6 fl (7.4-10.4); MONO # 2.5 (0.0-0.8); MONO % 6.7 % (4-12); NEUT % 86.5 % (43-75); PLATELET COUNT 213 K/mm3 (130-400); RED CELL DISTRIBUTION WIDTH 14.6 % (11.5-14.5)
[2016-12-10 06:42] LABS: BAND 21 % (0-10); BASOPHIL 0 % (0-1); EOSINOPHIL 0 % (1-3); LYMPHOCYTE 2 % (15-45); MONOCYTE 3 % (4-12); NEUTROPHILS 74 % (43-75); TOTAL CELLS COUNTED 100
[2016-12-10 06:43] LABS: PLATELET ESTIMATE NORMAL (NORMAL); TOXIC GRANULATION 2+
--- NOTE | 2016-12-10 07:11 | HP ---
Tano Malcolm [id number] : 1935 DATE OF ADMISSION: 12/09/2016 IDENTIFICATION: Mr. Malcolm is an 81-year-old followed by Dr. Coello. CHIEF COMPLAINT: Fever and chills. HISTORY OF PRESENT ILLNESS: Mr. Malcolm was hospitalized at [facility] November 11t through with an exacerbation of chronic diastolic heart failure. He had urinary retention during that hospitalization and had a Fox catheter placed. He was discharged to prison at [facility] and remained there for rehab until this morning when he was discharged. He has had the Fox catheter in place continuously. His did note that he was less energetic this morning and less excited about being discharged than she expected him to be. He seemed tired and weak through the day. She took him home and put him to bed and then he developed rigors, chills, and was hot to touch. Because of this, she brought him back to [facility] emergency room where he was found to have a urinary tract infection and evidence of severe sepsis with systemic inflammatory response syndrome secondary to infection and acute kidney injury. He was treated with ceftriaxone and referred to the hospitalist service. REVIEW OF SYSTEMS: HEENT: Denies headache, lightheadedness, or loss of consciousness. Denies acute problems with ears, eyes, nose, or throat. RESPIRATORY: He does report some dyspnea and cough. CARDIAC: Began complaining of some chest pain while in the emergency department. No palpitations. GASTROINTESTINAL: He has had some belching. He does think that gas is the cause of his chest pain. No nausea or vomiting. No diarrhea, constipation, hematochezia, or melana. GENITOURINARY: No specific symptoms. He has had the Fox catheter in place since November 11. He was seen in our emergency department on November 15 for hematuria. MUSCULOSKELETAL: Feet are more swollen than usual. CONSTITUTIONAL: Fevers, chills, and rigors. PAST MEDICAL HISTORY: 1. Chronic atrial fibrillation status post MAZE procedure in 2007. 2. Chronic diastolic heart failure. 3. Hypertension. 4. History of deep venous thrombosis in 2009 and suspected pulmonary embolism earlier this month. 5. Cerebrovascular disease with transient ischemic attack in 2012. 6. Abdominal aortic aneurysm followed with serial ultrasounds. 7. Chronic kidney disease, stage III with a baseline creatinine of 1.4. 8. Benign prostatic hypertrophy with history of transurethral resection of the prostate in 2004. 9. Cognitive dysfunction with SLUMS score of 13/30 on his last hospital admission. 10. Remote history of osteomyelitis of the right ankle. 11. Cervical degenerative disc disease. PAST SURGICAL HISTORY: 1. Multiple cervical spine fusions for cervical degenerative disc disease. 2. Left total shoulder arthroplasty at [facility] in 2012. 3. Transurethral resection of the prostate 2004. 4. Left inguinal hernia repair in the distant past. 5. Appendectomy in the distant past. 6. EGD June 2016. ALLERGIES: NO TRUE ALLERGIES, BUT INTOLERENCES REPORTED TO MEPERIDINE WHICH CAUSED VOMITING AND WARFARIN WHICH CAUSED BLEEDING. MEDICATIONS: From his medication administration records from [facility]. Last dose of his medications was this mornin. Amlodipine 10 mg by mouth daily. 2. Dandelion root supplement one daily. 3. Co-Q 10 supplement one daily. 4. Digoxin 125 mcg by mouth daily. 5. Diltiazem CD 120 mg by mouth daily. 6. Linzess 145 mcg daily. 7. Furosemide 40 mg by mouth twice daily, he has had one dose today. 8. Potassium chloride 20 mEq by mouth twice daily, one dose today. 9. Rivaroxaban 20 mg by mouth daily, appears his last dose was yesterday December 08. 10. Acetaminophen 650 mg by mouth every 4 hours as needed, last dose December 05. HABITS: He has a remote smoking history, but quit many years ago. No alcohol or drugs. 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 Normally resides at [facility] in a 5th wheel with his , but most of the last month has been at [facility]. He does have a POLST form that was signed by Dr. Coello on December 02 indicating attempt resuscitation, but limited additional interventions. FAMILY HISTORY: Father of Alzheimer's disease. His mother of congestive heart failure. He had a brother with colon cancer and another brother with Alzheimer's disease. PHYSICAL EXAMINATION: GENERAL: This is a cachectic appearing elderly gentleman with temporal wasting and prominent cheek bones. He is somewhat slow to respond. VITAL SIGNS: Temperature 97.6 degrees Fahrenheit, was 102.3 in the emergency department, pulse 77, blood pressure 104/70, respiratory rate 16, was 22 in the emergency department, oxygen saturation 93% on 2 liters of oxygen by nasal cannula. HEENT: Pupils equal, round and reactive. Extraocular muscles intact, status post cataract surgery. Oropharynx is somewhat dry. Edentulous with upper denture plate in place. NECK: No jugular venous distention. CHEST: Clear to auscultation. HEART: Regular. ABDOMEN: Soft, nontender, normal bowel tones. No organomegaly. No suprapubic tenderness. No CVA tenderness. EXTREMITIES: 2+ pitting edema in the feet, ankles, and mostly up the calves. Extensive onychomycosis. No cyanosis or clubbing. NEUROLOGIC: He is alert, but slow to respond. No focal deficits. LABORATORY: White blood cell count is 17.8 with 92% neutrophils, 6% bands, hemoglobin and hematocrit 12.7 and 38.6, platelets 254. INR is 1.49. Lactate 1.4. Sodium 133, potassium 4.0, chloride 99, CO2 25, BUN 29, creatinine 1.7, glucose 92, magnesium low at 1.8. CK-MB is 1.6. Troponin I 0.05. B-type natiuretic peptide 480. Urinalysis specific gravity of 1.015, 3+ protein, 4+ blood, positive leukocyte esterase, 30-40 red blood cells, packed white blood cells, and 3+ bacteria. Influenza A and B are negative. DIAGNOSTICS: Chest x-ray shows resolution of the left basilar infiltrate or effusion that was present on his prior admission. Slight elevation of the right hemidiaphragm and cardiomegaly and aortic ectasia unchanged. EKG atrial fibrillation with a remarkably controlled and regular rate. There is ST depression in V5 and V6, which may be increased from previous visits. ASSESSMENT: Mr. Malcolm is an 81-year-old just discharged from prison today who presents with an acute urinary tract infection secondary to chronic Fox catheterization. He has severe sepsis with acute kidney injury related to the urinary tract infection, mild hyponatremia and anemia and underlying chronic atrial fibrillation, chronic diastolic heart failure, hypertension, and urinary retention secondary to benign prostatic hypertrophy. PLAN: 1. Admit to med/surg. 2. Continue treatment with ceftriaxone as started in the emergency department. 3. Continue outpatient medications. 4. Would plan treatment with Tamsulosin and attempt at eliminating the chronic Fox catheter prior to discharge from this hospitalization. 5. Physical and occupational therapy evaluation and treatment. 6. Full code status per POLST form. 7. He is anticoagulated on Rivaroxaban and does not require further venous thromboembolism prophylaxis, but would benefit from compression stockings due to his lower extremity edema. 8. Consider further workup of his cognitive dysfunction to include vitamin B12 level, rapid plasma reagin and head CT scan. 9. Further care is indicated by clinical course. JOB: [id number] CC: Dr. Coello
[2016-12-10] MEDS: PANTOPRAZOLE 40 MG TABLET DR PO SCH (08:06)
[2016-12-10 08:38] LABS: CALCIUM 8.8 mg/dL (8.6-10.3)
[2016-12-10] MEDS ORDERED: RIVAROXABAN 10 MG TABLET PO SCH (09:00)
[2016-12-10] MEDS ORDERED: DIGOXIN 0.125 MG TABLET PO SCH (09:00)
[2016-12-10] MEDS ORDERED: AMLODIPINE BESYLATE 5 MG TABLET PO SCH (09:00)
[2016-12-10] MEDS: DILTIAZEM HCL CD 120 MG CAPSULE PO SCH (09:05)
[2016-12-10] MEDS: POTASSIUM CHLORIDE 10 MEQ TAB.SR PO SCH ×2 (09:05→20:40)
[2016-12-10] MEDS: DOCUSATE SODIUM 100 MG CAPSULE PO SCH ×2 (09:06→20:40)
[2016-12-10] MEDS: FUROSEMIDE 40 MG TABLET PO SCH ×2 (09:06→15:45)
[2016-12-10] MEDS: RIVAROXABAN 10 MG TABLET PO SCH (09:06)
[2016-12-10] MEDS ORDERED: NITROGLYCERIN 0.4 MG/TAB.SUBL BOT SL SCH (10:38)
[2016-12-10] MEDS ORDERED: LACTATED RINGERS 500 ML IV ONE (10:42)
--- NOTE | 2016-12-10 11:03 | PDOC43 ---
- Subjective Chief Complaint: fever, weakness Subjective: Reports Tolerating Diet Well, Denies Shortness of Breath, Denies Chest Pain, Denies Fever - Objective Vital Signs Temperature 97.7 F 12/10/16 08:35 Pulse Rate 49 12/10/16 08:35 Respiratory Rate 17 12/10/16 08:35 Blood Pressure 108/67 12/10/16 08:35 O2 Saturation by Pulse Oximetry 95 12/10/16 08:35 Oxygen Delivery Method Nasal Cannula Oxygen Flow Rate 2 Intake and Output 12/09/16 12/10/16 12/11/16 06:59 06:59 06:59 Intake Total 1500 240 Output Total 125 Balance 1375 240 General: Alert, Cooperative, No Acute Distress HEENT: Mucous membr. moist/pink Lungs: Clear to Auscultation Bilaterally Cardiovascular: Regular Rate and Rhythm Abdomen: Soft, Normal Bowel Sounds, Non-Distended, No Tenderness Extremities: Edema (2 plus in both lower legs) Skin: Erythema (in gluteal crease with some fissuring) Laboratory 12/10/16 05:15 12/10/16 05:15 12/10/16 05:15 RBC 3.84 L MCV 94.8 H MCHC 32.7 L RDW 14.6 H BUN 33 H Estimated GFR 30 L % Immature Granulocyt 4.2 H Current Medications: Current meds reviewed in EMR. - Problems: Assessment/Plan (1) UTI (lower urinary tract infection) Status: Acute Assessment/Plan: associated with chronic indwelling catheter, causing severe sepsis on admit, presumed bacterial on Rocephin-await C and S (2) CHF (congestive heart failure) Qualifiers: Congestive heart failure type: diastolic Congestive heart failure chronicity: chronic Qualifier Code: (I50.32) Chronic diastolic (congestive) heart failure Status: Chronic Assessment/Plan: stable with chronic edema on Lasix (3) Chest pain Qualifiers: Chest pain type: unspecified Qualifier Code: (R07.9) Chest pain, unspecified Status: Acute Assessment/Plan: unclear etiology, cardiac enzymes wnl, given NTG but had drop in BP-holding Norvasc for low BP (4) Atrial fibrillation Qualifiers: Atrial fibrillation type: chronic Qualifier Code: (I48.2) Chronic atrial fibrillation Status: Chronic Assessment/Plan: rate controlled on Diltiazem and digoxin, anticoagulated on Xarelto-tele (5) BPH (benign prostatic hypertrophy) Qualifiers: Prostatic enlargement morphology: unspecified morphology Lower urinary tract symptom presence: symptoms present Qualifier Code: (N40.1) Benign prostatic hyperplasia with lower urinary tract symptoms Status: Acute Assessment/Plan: causing bladder outlet obstruction and need for chronic indwelling catheter- change before discharge (6) Hyponatremia Status: Acute Assessment/Plan: mild, corrected with saline (7) H/O deep venous thrombosis Status: Chronic Assessment/Plan: on Xarelto (8) Senile dementia Qualifiers: Dementia behavioral disturbance: without behavioral disturbance Qualifier Code: (F03.90) Unspecified dementia without behavioral disturbance Status: Acute Assessment/Plan: appears fairly advanced, likely Alzheimer's type given family Hx (9) Gluteal cleft wound Qualifiers: Encounter type: initial encounter Laterality: unspecified laterality Qualifier Code: (S31.809A) Unspecified open wound of unspecified buttock, initial encounter Status: Acute Assessment/Plan: apply skin barrier cream-donut cushion VTE Prophylaxis: Xarelto Disposition: Home in 1-2 days
[2016-12-10] MEDS: SODIUM CHLORIDE 0.9% 500 ML BAG IV PRN (11:17)
[2016-12-10] MEDS ORDERED: CEFTRIAXONE 1 GRAM DUPLEX 1 G in Premix (D5W) 50 ml 1 EACH IV SCH (21:00)
--- NOTE | 2016-12-11 06:58 | PDOC43 ---
- Subjective Chief Complaint: fever, weakness Subjective: Reports Adequate Oral Intake, Denies Shortness of Breath, Denies Cough, Denies Chest Pain, Denies Fever - Objective Vital Signs Temperature 97.8 F 12/11/16 03:20 Pulse Rate 71 12/11/16 03:20 Respiratory Rate 22 12/11/16 03:20 Blood Pressure 117/68 12/11/16 03:20 O2 Saturation by Pulse Oximetry 95 12/11/16 03:20 Oxygen Delivery Method Nasal Cannula Oxygen Flow Rate 3 Intake and Output 12/09/16 12/10/16 12/11/16 06:59 06:59 06:59 Intake Total 1500 1430 Output Total 125 1300 Balance 1375 130 General: Alert, Cooperative, No Acute Distress Lungs: Diminished at Bases Cardiovascular: Regular Rate and Rhythm Abdomen: Soft, Normal Bowel Sounds, Non-Distended, No Tenderness Extremities: Edema (stable at one plus around ankles) Skin: Warm, Dry, Intact Laboratory 12/10/16 05:15 12/10/16 05:15 12/10/16 05:15 BUN 33 H Estimated GFR 30 L Current Medications: Current meds reviewed in EMR. - Problems: Assessment/Plan (1) UTI (lower urinary tract infection) Status: Acute Assessment/Plan: associated with chronic indwelling catheter, causing severe sepsis on admit, presumed bacterial on Rocephin, several organisms growing on Cx-await C and S (2) CHF (congestive heart failure) Qualifiers: Congestive heart failure type: diastolic Congestive heart failure chronicity: chronic Qualifier Code: (I50.32) Chronic diastolic (congestive) heart failure Status: Chronic Assessment/Plan: stable with chronic edema on Lasix (3) Chest pain Qualifiers: Chest pain type: unspecified Qualifier Code: (R07.9) Chest pain, unspecified Status: Acute Assessment/Plan: unclear etiology, cardiac enzymes wnl, given NTG but had drop in BP-holding Norvasc for low BP (4) Atrial fibrillation Qualifiers: Atrial fibrillation type: chronic Qualifier Code: (I48.2) Chronic atrial fibrillation Status: Chronic Assessment/Plan: rate controlled on Diltiazem and digoxin, anticoagulated on Xarelto-tele (5) BPH (benign prostatic hypertrophy) Qualifiers: Prostatic enlargement morphology: unspecified morphology Lower urinary tract symptom presence: symptoms present Qualifier Code: (N40.1) Benign prostatic hyperplasia with lower urinary tract symptoms Status: Acute Assessment/Plan: causing bladder outlet obstruction and need for chronic indwelling catheter- change before discharge (6) Hyponatremia Status: Acute Assessment/Plan: mild, corrected with saline (7) H/O deep venous thrombosis Status: Chronic Assessment/Plan: on Xarelto (8) Senile dementia Qualifiers: Dementia behavioral disturbance: without behavioral disturbance Qualifier Code: (F03.90) Unspecified dementia without behavioral disturbance Status: Acute Assessment/Plan: appears fairly advanced, likely Alzheimer's type given family Hx (9) Gluteal cleft wound Qualifiers: Encounter type: initial encounter Laterality: unspecified laterality Qualifier Code: (S31.809A) Unspecified open wound of unspecified buttock, initial encounter Status: Acute Assessment/Plan: apply skin barrier cream-donut cushion (10) SAMIRA (acute kidney injury) Status: Acute Assessment/Plan: Cr up to 2.1, baseline of 1.4, suspect due to severe sepsis, good urine output- will follow VTE Prophylaxis: Xarelto Disposition: Home in 1-2 days
[2016-12-11] MEDS: PANTOPRAZOLE 40 MG TABLET DR PO SCH (07:13)
[2016-12-11] MEDS: FUROSEMIDE 40 MG TABLET PO SCH ×2 (09:22→16:42)
[2016-12-11] MEDS: DOCUSATE SODIUM 100 MG CAPSULE PO SCH ×2 (09:22→20:35)
[2016-12-11] MEDS: POTASSIUM CHLORIDE 10 MEQ TAB.SR PO SCH ×2 (09:22→20:34)
[2016-12-11] MEDS: DILTIAZEM HCL CD 120 MG CAPSULE PO SCH (09:22)
[2016-12-11] MEDS: RIVAROXABAN 10 MG TABLET PO SCH (09:22)
[2016-12-11] MEDS: LINACLOTIDE 145 MCG PO SCH (13:08)
[2016-12-11] MEDS ORDERED: CEFTAZIDIME IV SCH (16:45)
[2016-12-11] MEDS ORDERED: SODIUM CHLORIDE 0.9% IV SCH (16:45)
[2016-12-11] MEDS: CEFTAZIDIME IV SCH (17:08)
[2016-12-11] MEDS: SODIUM CHLORIDE 0.9% IV SCH (17:08)
[2016-12-11] MEDS: TAMSULOSIN HCL 0.4 MG CAPSULE.DR PO SCH (20:35)
[2016-12-12] MEDS: SODIUM CHLORIDE 0.9% IV SCH ×2 (04:43→16:46)
[2016-12-12] MEDS: CEFTAZIDIME IV SCH ×2 (04:43→16:46)
[2016-12-12 05:37] LABS: ABSOLUTE NEUTROPHIL COUNT 10.4 K/mm3 (1.8-7.7); BASO # 0.1 K/mm3 (0.0-0.2); BASO % 0.4 % (0.2-1.0); EOS # 0.2 (0.0-0.5); EOS % 1.5 % (0.9-2.9); HEMATOCRIT 34.9 % (32.0-52.0); HEMOGLOBIN 11.9 gm/l (14.0-18.0); IMM NEUT% 0.3 % (0-1); LYMPH # 0.8 (1.0-4.8); LYMPH % 6.3 % (15-45); MEAN CELL VOLUME 92.1 fl (80.0-94.0); MEAN CORPUSCULAR HEMOGLOBIN 31.4 pg (27.0-31.0); MEAN CORPUSCULAR HGB CONC 34.1 g/dl (33.0-37.0); MEAN PLATELET VOLUME 10.6 fl (7.4-10.4); MONO # 0.8 (0.0-0.8); MONO % 6.7 % (4-12); NEUT % 84.8 % (43-75); PLATELET COUNT 187 K/mm3 (130-400); RED CELL DISTRIBUTION WIDTH 14.3 % (11.5-14.5)
[2016-12-12 05:58] LABS: CALCIUM 8.7 mg/dL (8.6-10.3)
[2016-12-12] MEDS: PANTOPRAZOLE 40 MG TABLET DR PO SCH (07:11)
[2016-12-12] MEDS: FUROSEMIDE 40 MG TABLET PO SCH ×2 (08:28→16:47)
[2016-12-12] MEDS: LINACLOTIDE 145 MCG PO SCH (08:28)
[2016-12-12] MEDS: DILTIAZEM HCL CD 120 MG CAPSULE PO SCH (08:29)
[2016-12-12] MEDS: POTASSIUM CHLORIDE 10 MEQ TAB.SR PO SCH ×2 (08:29→20:52)
[2016-12-12] MEDS: RIVAROXABAN 10 MG TABLET PO SCH (08:29)
[2016-12-12] MEDS: DOCUSATE SODIUM 100 MG CAPSULE PO SCH ×2 (08:29→20:51)
--- NOTE | 2016-12-12 09:50 | PDOC43 ---
- Subjective Chief Complaint: fever, weakness Denies chest pain, wants to go home. - Objective Vital Signs Temperature 97.7 F 12/12/16 07:58 Pulse Rate 76 12/12/16 07:58 Respiratory Rate 18 12/12/16 07:58 Blood Pressure 132/88 12/12/16 07:58 O2 Saturation by Pulse Oximetry 92 12/12/16 07:58 Oxygen Delivery Method Room Air Oxygen Flow Rate 0 Intake and Output 12/11/16 12/12/16 12/13/16 06:59 06:59 06:59 Intake Total 1430 2245 Output Total 1300 3150 Balance 130 -905 General: Alert, Cooperative, No Oriented x3, No Acute Distress HEENT: Mucous membr. moist/pink Lungs: Clear to Auscultation Bilaterally Cardiovascular: Regular Rate and Rhythm Abdomen: Soft, Normal Bowel Sounds, No Tenderness, No Masses Genitourinary: Indwelling Urinary Cath (urine bloody due to rivaroxaban treatment) Extremities: Edema (1+ on right 2+ on left in feet only, decreased from admit.) Skin: Normal Color Psych/Mental Status: Normal Mood Laboratory 12/12/16 05:30 12/12/16 05:30 12/12/16 05:30 RBC 3.79 L MCH 31.4 H BUN 26 H Estimated GFR 45 L Current Medications: Current meds reviewed in EMR. - Problems: Assessment/Plan (1) UTI (lower urinary tract infection) Status: Acute Assessment/Plan: associated with chronic indwelling catheter, causing severe sepsis on admit. Due to Pseudomonas aeruginosa and Citrobacter freundii, antibiotic changed from ceftriaxone to ceftazidime on 12/11. Anticipate one more day IV abx then change to oral Ciprofloxacin on discharge. (2) Sepsis Qualifiers: Sepsis type: Pseudomonas Qualifier Code: (A41.52) Sepsis due to Pseudomonas Status: Acute Assessment/Plan: Severe sepsis with SAMIRA present on admit, treatment as above. Blood cultures negative, sepsis has resolved. (3) SMAIRA (acute kidney injury) Status: Acute Assessment/Plan: Due to Severe Sepsis creatinine went up to 2.1, now has returned to near baseline 1.5. (4) Anemia Status: Chronic Assessment/Plan: Chronic and mild, may be related to CKD and blood loss from chronic anticoagulation on rivaroxiban. (5) BPH (benign prostatic hypertrophy) Qualifiers: Prostatic enlargement morphology: unspecified morphology Lower urinary tract symptom presence: symptoms present Qualifier Code: (N40.1) Benign prostatic hyperplasia with lower urinary tract symptoms Status: Acute Assessment/Plan: causing bladder outlet obstruction and need for urinary catheter placement on prior admit. Tamsulosin started this admit, will trial D/C catheter and evaluate if patient can void without it. (6) Chest pain Qualifiers: Chest pain type: unspecified Qualifier Code: (R07.9) Chest pain, unspecified Status: Acute Assessment/Plan: unclear etiology, cardiac enzymes wnl, given NTG but had drop in BP-holding Norvasc for low BP (7) Gluteal cleft wound Qualifiers: Encounter type: initial encounter Laterality: unspecified laterality Qualifier Code: (S31.809A) Unspecified open wound of unspecified buttock, initial encounter Status: Acute Assessment/Plan: Present on admit. apply skin barrier cream-donut cushion (8) Hypokalemia Status: Acute Assessment/Plan: Due to diuresis, replace. (9) Hyponatremia Status: Acute Assessment/Plan: mild, corrected with saline (10) Senile dementia Qualifiers: Dementia behavioral disturbance: without behavioral disturbance Qualifier Code: (F03.90) Unspecified dementia without behavioral disturbance Status: Chronic Assessment/Plan: appears fairly advanced, likely Alzheimer's type given family Hx (11) Atrial fibrillation Qualifiers: Atrial fibrillation type: chronic Qualifier Code: (I48.2) Chronic atrial fibrillation Status: Chronic Assessment/Plan: rate controlled on Diltiazem anticoagulated on Rivaroxiban. Norvasc and digoxin on hold since admit, plan to discontinue these meds on discharge. (12) CHF (congestive heart failure) Qualifiers: Congestive heart failure type: diastolic Congestive heart failure chronicity: chronic Qualifier Code: (I50.32) Chronic diastolic (congestive) heart failure Status: Chronic Assessment/Plan: stable with chronic edema on Lasix. Has diuresed and had decreased edema since admit. (13) CKD (chronic kidney disease) stage 3, GFR 30-59 ml/min Status: Chronic Assessment/Plan: Has returned to baseline creatinine of 1.4-1.5 (14) HTN (hypertension) Qualifiers: Hypertension type: essential hypertension Qualifier Code: (I10) Essential (primary) hypertension Status: Chronic Assessment/Plan: Appears controlled on diltiazem only. If another medication needed will start metoprolol rather than resuming Norvasc. (15) H/O deep venous thrombosis Status: Chronic Assessment/Plan: And suspected PE in November, chronic anticoagulation on riveroxaban VTE Prophylaxis: on rivaroxaban Disposition: Home with home health consult. Will trial D/C Dominique today, likely D/C tomorrow.
[2016-12-12] MEDS: POTASSIUM CHLORIDE 20 MEQ TAB.PRT.SR PO SCH ×2 (10:14→20:51)
[2016-12-12] MEDS ORDERED: TAMSULOSIN HCL 0.4 MG CAPSULE.DR PO SCH (15:44)
[2016-12-13 05:58] LABS: ABSOLUTE NEUTROPHIL COUNT 7.6 K/mm3 (1.8-7.7); BASO # 0.1 K/mm3 (0.0-0.2); BASO % 0.5 % (0.2-1.0); EOS # 0.2 (0.0-0.5); EOS % 1.9 % (0.9-2.9); HEMATOCRIT 37.7 % (32.0-52.0); HEMOGLOBIN 12.5 gm/l (14.0-18.0); IMM NEUT # 0.1 K/mm3 (0-0.2); IMM NEUT% 0.7 % (0-1); LYMPH % 10.3 % (15-45); MEAN CELL VOLUME 91.5 fl (80.0-94.0); MEAN CORPUSCULAR HEMOGLOBIN 30.3 pg (27.0-31.0); MEAN CORPUSCULAR HGB CONC 33.2 g/dl (33.0-37.0); NEUT % 76.6 % (43-75); PLATELET COUNT 198 K/mm3 (130-400); RED CELL DISTRIBUTION WIDTH 13.9 % (11.5-14.5)
[2016-12-13 06:18] LABS: CALCIUM 8.8 mg/dL (8.6-10.3)
[2016-12-13] MEDS: SODIUM CHLORIDE 0.9% IV SCH (06:38)
[2016-12-13] MEDS: CEFTAZIDIME IV SCH (06:38)
[2016-12-13] MEDS: PANTOPRAZOLE 40 MG TABLET DR PO SCH (07:01)
--- NOTE | 2016-12-13 07:54 | PDOC5 ---
ADMIT DATE: 12/09/16 DISCHARGE DATE: 12/13/16 ADMISSION DIAGNOSES: UTI with severe sepsis PROCEDURES PERFORMED THIS HOSPITALIZATION: None CONSULTATIONS: OT/PT--patient was appropriate to discharge home with home health therapies. HOSPITAL COURSE: This 81 year old was brought to the ER on the same day that he had been discharged from SNF. He had Fever/chills and SAMIRA due to an acute UTI associated with chronic Fox catheter. He was admitted to med/surg and treated with ceftriaxone. Shortly after admit he c/o chest pain with normal EKG and cardiac enzymes. He was given SL NTG but had a drop in BP due to NTG ( not septic shock). Chest pain resolved and was not furter evaluated. Urine grew Pseudomonas and Citrobacter and antibiotic was changed to Ceftazadime. A voiding trial was made on 12/12-12/13 but he had urinary retention and the Fox was replaced. On 12/13 he is stable and requesting discharge to home. - Exam Vital Signs Temperature 98.2 F 12/13/16 04:00 Pulse Rate 67 12/13/16 04:00 Respiratory Rate 20 12/13/16 04:00 Blood Pressure 138/89 12/13/16 04:00 O2 Saturation by Pulse Oximetry 92 12/13/16 04:00 Oxygen Delivery Method Room Air Oxygen Flow Rate 0 General: Alert, Cooperative, No Oriented x3, No Acute Distress HEENT: Mucous membr. moist/pink Lungs: Clear to Auscultation Bilaterally Cardiovascular: Regular Rate and Rhythm Abdomen: Soft, Normal Bowel Sounds, No Tenderness, No Masses Genitourinary: Indwelling Urinary Cath, Other (moderate pink color to urine) Extremities: Edema (trace on right 1+ on left, continued improvement.) Neurological: Normal Speech Psych/Mental Status: Normal Mood - Results Laboratory 12/13/16 05:30 12/13/16 05:30 12/13/16 05:30 RBC 4.12 L Estimated GFR 58 L - Problems:Assessment/Plan (1) UTI (lower urinary tract infection) Status: Acute Assessment/Plan: associated with chronic indwelling catheter, causing severe sepsis on admit. Due to Pseudomonas aeruginosa and Citrobacter freundii, antibiotic changed from ceftriaxone to ceftazidime on 12/11. WBC is normal today, change to oral Ciprofloxacin and discharge. (2) Sepsis Qualifiers: Sepsis type: Pseudomonas Qualifier Code: (A41.52) Sepsis due to Pseudomonas Status: Acute Assessment/Plan: Severe sepsis with SAMIRA present on admit, treatment as above. Blood cultures negative, sepsis has resolved. (3) SAMIRA (acute kidney injury) Status: Acute Assessment/Plan: Due to Severe Sepsis creatinine went up to 2.1, now has returned to baseline. (4) Anemia Status: Chronic Assessment/Plan: Chronic and mild, may be related to CKD and blood loss from chronic anticoagulation on rivaroxiban. (5) BPH (benign prostatic hypertrophy) Qualifiers: Prostatic enlargement morphology: unspecified morphology Lower urinary tract symptom presence: symptoms present Qualifier Code: (N40.1) Benign prostatic hyperplasia with lower urinary tract symptoms Status: Acute Assessment/Plan: causing bladder outlet obstruction and need for urinary catheter placement on prior admit. Tamsulosin started this admit, D/Julio catheter on 12/12 but patient only able to void small amounts and had post void bladder scan > 800 mL this a.m. Fox replaced, discharge on nightly tamsulosin and f/u with urology. (6) Chest pain Qualifiers: Chest pain type: unspecified Qualifier Code: (R07.9) Chest pain, unspecified Status: Acute Assessment/Plan: unclear etiology but probably related to severe sepsis, cardiac enzymes wnl, no EKG changes,given NTG but had drop in BP. Resolved. (7) Gluteal cleft wound Qualifiers: Encounter type: initial encounter Laterality: unspecified laterality Qualifier Code: (S31.809A) Unspecified open wound of unspecified buttock, initial encounter Status: Acute Assessment/Plan: Present on admit. apply skin barrier cream-donut cushion (8) Hypokalemia Status: Acute Assessment/Plan: Due to diuresis, improving with replacement. (9) Hyponatremia Status: Acute Assessment/Plan: mild, corrected with saline (10) Senile dementia Qualifiers: Dementia behavioral disturbance: without behavioral disturbance Qualifier Code: (F03.90) Unspecified dementia without behavioral disturbance Status: Chronic Assessment/Plan: appears fairly advanced, likely Alzheimer's type given family Hx (11) Atrial fibrillation Qualifiers: Atrial fibrillation type: chronic Qualifier Code: (I48.2) Chronic atrial fibrillation Status: Chronic Assessment/Plan: rate controlled on Diltiazem alone, anticoagulated on Rivaroxiban. Norvasc and digoxin on hold since admit, plan to discontinue these meds on discharge as they do not appear beneficial. (12) CHF (congestive heart failure) Qualifiers: Congestive heart failure type: diastolic Congestive heart failure chronicity: chronic Qualifier Code: (I50.32) Chronic diastolic (congestive) heart failure Status: Chronic Assessment/Plan: stable with chronic edema on Lasix. Has diuresed and had decreased edema since admit. (13) CKD (chronic kidney disease) stage 3, GFR 30-59 ml/min Status: Chronic Assessment/Plan: Has returned to baseline creatinine, 1.2 today. (14) HTN (hypertension) Qualifiers: Hypertension type: essential hypertension Qualifier Code: (I10) Essential (primary) hypertension Status: Chronic Assessment/Plan: Appears controlled on diltiazem only. If another medication needed would consider metoprolol rather than resuming Norvasc. (15) H/O deep venous thrombosis Status: Chronic Assessment/Plan: And suspected PE in November, chronic anticoagulation on riveroxaban - Disposition: Disposition: Home with home health consult. - Discharge Plan Forms: Discharge Instructions Prescriptions: Ciprofloxacin [Cipro] 500 mg PO BID #20 tab Rivaroxaban [Xarelto] 15 mg PO DAILY #30 tablet Tamsulosin HCl [FLOMAX 0.4 MG CAPSULE (SHF)] 0.8 mg PO BEDTIME #30 capsule. Follow-Up: [facility] [Other] (An order has been faxed for a home health nurse , physical therapist, bath aid and social welfare research worker. They will contact you at home to schedule appointments.) Jony Friend MD [Provisional Staff] - In 7-10 days He Coello DO [Primary Care Provider] - 12/23/16 11:30 am Condition: Stable Disposition: Home w/ Home Health Service
[2016-12-13 08:01] VITALS: BP 138/80
[2016-12-13] MEDS: DILTIAZEM HCL CD 120 MG CAPSULE PO SCH (08:21)
[2016-12-13] MEDS: POTASSIUM CHLORIDE 20 MEQ TAB.PRT.SR PO SCH (08:21)
[2016-12-13] MEDS: FUROSEMIDE 40 MG TABLET PO SCH (08:21)
[2016-12-13] MEDS: DOCUSATE SODIUM 100 MG CAPSULE PO SCH (08:21)
[2016-12-13] MEDS: RIVAROXABAN 10 MG TABLET PO SCH (08:21)
== END 2016-12-13 10:56 | disposition home health service (06) | DRG 698 ==
LOC: ED 19:07 → MS 20:42
PROVIDERS: ADMIT Family Medicine; ATTEND Family Medicine
DX: T83.518A Infection and inflammatory reaction due to other urinary catheter, initial encounter (principal); A41.52 Sepsis due to Pseudomonas; R65.20 Severe sepsis without septic shock; I50.32 Chronic diastolic (congestive) heart failure; N13.8 Other obstructive and reflux uropathy; E87.1 Hypo-osmolality and hyponatremia; N17.9 Acute kidney failure, unspecified; N39.0 Urinary tract infection, site not specified; Y73.8 Miscellaneous gastroenterology and urology devices associated with adverse incidents, not elsewhere classified; I48.2 Chronic atrial fibrillation; Z79.01 Long term (current) use of anticoagulants; N40.1 Benign prostatic hyperplasia with lower urinary tract symptoms; F03.90 Unspecified dementia, unspecified severity, without behavioral disturbance, psychotic disturbance, mood disturbance, and anxiety; S30.91XA Unspecified superficial injury of lower back and pelvis, initial encounter; I13.10 Hypertensive heart and chronic kidney disease without heart failure, with stage 1 through stage 4 chronic kidney disease, or unspecified chronic kidney disease; N18.3 Chronic kidney disease, stage 3 (moderate)